=== PATIENT | male | born 1960 | race Two or more races ===

== ENCOUNTER 2022-03-18 08:38 | Inpatient (IN) | payer OTHER, MEDICAID ==
[~2022-03-18] VITALS: Ht 177.8 cm; Wt 90.0 kg
[2022-03-18] MEDS ORDERED: SODIUM CHLORIDE 0.9% 1,000 ML IV ONE (10:45)
[2022-03-18 11:18] LABS: Albumin 3.8 g/dL (3.4-5.0); Calcium 8.8 mg/dL (8.5-10.1)
[2022-03-18 11:19] LABS: INR 0.94 (0.9-1.15); Partial Thromboplastin Time 30.1 sec (24.6-33.4)
[2022-03-18 11:20] LABS: Basophils # (auto) 0 10 ^3/uL (0-0.2); Basophils % (auto) 0.4 % (0.0-2.0); Eosinophils # (auto) 0 10 ^3/uL (0-0.8); Eosinophils % (auto) 0.5 % (0.0-7.0); Hemoglobin 15.6 g/dL (13.5-17.5); Lymphocytes # (auto) 2.4 10 ^3/uL (0.4-5.4); Lymphocytes % (auto) 41.4 % (10.0-50.0); Mean Corpuscular Hemoglobin 31.9 pg (28.0-32.0); Mean Corpuscular Volume 93.7 fL (80.0-100.0); Monocytes # (auto) 0.4 10 ^3/uL (0-1.3); Monocytes % (auto) 7.6 % (0.0-12.0); Neutrophils # (auto) 2.9 10 ^3/uL (1.6-8.6); Neutrophils % (auto) 50.1 % (37.0-80.0); Nucleated Red Blood Cells % 0.2 %; Red Blood Cells 4.91 10^6/uL (4.5-5.90); White Blood Cell 5.8 10^3/uL (4.4-10.8)
[2022-03-18 11:22] LABS: BUN/Creatinine Ratio 13.1; Bilirubin, Total 0.3 mg/dL (0.2-1.0); Total Protein 7.4 g/dL (6.4-8.2)
[2022-03-18] MEDS ORDERED: MORPHINE SULFATE INJ 2 MG/ml SYRG IV PRN (12:30)
[2022-03-18] MEDS ORDERED: NITROGLYCERIN 0.4 MG SL TAB SL PRN (12:30)
[2022-03-18] MEDS ORDERED: TOPI200T43 PO (12:39)
[2022-03-18 12:56] LABS: Cholesterol 228 mg/dL (< 200); HDL Cholesterol 64 mg/dL (40-59); LDL Cholesterol 140 mg/dL (< 100); Triglycerides 219 mg/dL (< 150)
[2022-03-18] MEDS ORDERED: hydrALAZINE HCL 20 MG/ML VL IV PRN (13:15)
[2022-03-18 22:29] LABS: Amphetamine Screen, Urine NEGATIVE (NEGATIVE); Benzodiazephine Screen, Urine NEGATIVE (NEGATIVE); Cannabinoid Screen, Urine POSITIVE (NEGATIVE); Cocaine Screen, Urine NEGATIVE (NEGATIVE)
[2022-03-18 22:32] LABS: Urine Bacteria NONE SEEN /hpf (None Seen); Urine Blood Negative /uL (Negative); Urine Specific Gravity 1.011 (1.001-1.035); Urine WBC 1 /hpf (0 - 3)
[2022-03-18 22:37] LABS: Barbiturate Scree,Urine NEGATIVE (NEGATIVE); Opiate Scree,Urine NEGATIVE (NEGATIVE); Phencyclidine Screen, Urine NEGATIVE (NEGATIVE)
[2022-03-18 22:49] VITALS: BP 132/74
[2022-03-18 22:50] VITALS: BP 160/102
[2022-03-19 05:45] LABS: Basophils # (auto) 0 10 ^3/uL (0-0.2); Basophils % (auto) 0.6 % (0.0-2.0); Eosinophils # (auto) 0 10 ^3/uL (0-0.8); Eosinophils % (auto) 0.7 % (0.0-7.0); Hematocrit 41.5 % (41.0-53.0); Hemoglobin 14.4 g/dL (13.5-17.5); Lymphocytes # (auto) 2.1 10 ^3/uL (0.4-5.4); Lymphocytes % (auto) 32.2 % (10.0-50.0); Mean Corpuscular Hemoglobin 32.1 pg (28.0-32.0); Mean Corpuscular Hgb Conc. 34.7 g/dL (32.0-36.0); Mean Corpuscular Volume 92.7 fL (80.0-100.0); Monocytes # (auto) 0.8 10 ^3/uL (0-1.3); Monocytes % (auto) 12.5 % (0.0-12.0); Neutrophils # (auto) 3.5 10 ^3/uL (1.6-8.6); Nucleated Red Blood Cells % 0.1 %; Red Blood Cells 4.48 10^6/uL (4.5-5.90); Red Cell Distribution Width 14.1 % (11.8-14.3); White Blood Cell 6.6 10^3/uL (4.4-10.8)
[2022-03-19 06:11] LABS: Albumin 3.4 g/dL (3.4-5.0); Calcium 8.7 mg/dL (8.5-10.1)
[2022-03-19 06:31] LABS: BUN/Creatinine Ratio 16.3; Bilirubin, Total 0.7 mg/dL (0.2-1.0); Potassium 3.6 mmol/L (3.5-5.1); Total Protein 6.5 g/dL (6.4-8.2)
[2022-03-19 08:44] VITALS: BP 145/91
[2022-03-19] MEDS ORDERED: ENOXAPARIN SOD 40 MG/0.4 ML SYRINGE SC SCH (10:00)
[2022-03-19] MEDS ORDERED: MULTIPLE VITAMIN TAB PO ONE (12:00)
[2022-03-19] MEDS ORDERED: traMADol HCL 50 MG TAB PO PRN (12:00)
[2022-03-19] MEDS ORDERED: TOPIRAMATE 100 MG TAB PO ONE (12:00)
[2022-03-19] MEDS ORDERED: THIAMINE HCL 100 MG TAB PO ONE (12:00)
[2022-03-19 12:50] VITALS: BP 142/92
[2022-03-19] MEDS ORDERED: LISINOPRIL 10 MG TAB PO ONE (14:15)
[2022-03-19 16:25] VITALS: BP 138/86
[2022-03-19 20:00] VITALS: BP 135/69
[2022-03-19 22:00] VITALS: BP 135/99
[2022-03-19] MEDS ORDERED: TOPIRAMATE 100 MG TAB PO SCH (22:00)
[2022-03-19] MEDS ORDERED: ATORVASTATIN 20 MG TAB PO SCH (22:00)
[2022-03-20 05:00] VITALS: BP 112/67
[2022-03-20 08:00] VITALS: BP 113/66
[2022-03-20] MEDS ORDERED: MULTIPLE VITAMIN TAB PO SCH (10:00)
[2022-03-20] MEDS ORDERED: TOPIRAMATE 100 MG TAB PO SCH ×3 (10:00→22:00)
[2022-03-20] MEDS ORDERED: THIAMINE HCL 100 MG TAB PO SCH (10:00)
[2022-03-20] MEDS ORDERED: LISINOPRIL 10 MG TAB PO SCH (10:00)
[2022-03-20 12:00] VITALS: BP 113/70
[2022-03-20 13:01] VITALS: BP 113/66
== END 2022-03-20 16:15 | disposition home or self-care (01) | DRG 897 ==
LOC: ER 08:38 → TELE 12:33 → TELE-WESTW 21:40 → WEST WING 03-20 03:40
PROVIDERS: ADMIT Registered Nurse; ATTEND Internal Medicine
DX: F10.129 Alcohol abuse with intoxication, unspecified (principal); S09.90XA Unspecified injury of head, initial encounter; E78.5 Hyperlipidemia, unspecified; Z20.822 Contact with and (suspected) exposure to COVID-19; W18.39XA Other fall on same level, initial encounter; M54.30 Sciatica, unspecified side; I10 Essential (primary) hypertension; Z82.49 Family history of ischemic heart disease and other diseases of the circulatory system; Z90.49 Acquired absence of other specified parts of digestive tract; Z93.3 Colostomy status; Y93.89 Activity, other specified; Y92.89 Other specified places as the place of occurrence of the external cause; Y99.8 Other external cause status; Z71.41 Alcohol abuse counseling and surveillance of alcoholic
CPT/HCPCS: 36415; 70450; 71045; 80053; 80061; 80307; 80320; 81001; 83036; 84443; 84484; 85025; 85610; 85730; 87426; 93005; 93306; 93886; 96360; 97163; G0378